=== PATIENT | female | born 1980 | race Caucasian/White ===

== ENCOUNTER 2024-06-26 12:22 | Outpatient (CLI) | payer OTHER, SELFPAY ==
[2024-06-26 13:17] LABS: Alanine Aminotransferase 17 U/L (6-35); Albumin Level 3.8 g/dL (3.5-5.1); Alkaline Phosphatase 48 U/L (38-126); Anion Gap 4 mmol/L (4-12); Aspartate Amino Transferase 18 U/L (14-36); Bilirubin,Total 0.3 mg/dL (0.2-1.3); Blood Urea Nitrogen 23 mg/dL (7-17); Calcium 8.9 mg/dL (8.4-10.2); Carbon Dioxide 27 mmol/L (22-30); Chloride 106 mmol/L (98-107); Cholesterol 184 mg/dL (0-200); Estimated Glomerular Filt Rate > 60; Glucose 96 mg/dL (65-110); HDL Direct 79 mg/dL; Potassium 4.3 mmol/L (3.4-5.0); Sodium 137 mmol/L (137-145); Triglycerides 58 mg/dL (<150)
[2024-06-26 13:31] LABS: LDL Cholesterol Direct 93 mg/dL
[2024-06-26 15:34] LABS: Free T4 Free Thyroxine Reflex 1.02 ng/dL (0.78-2.19)
[2024-06-26 16:31] LABS: Total Triiodothyronine (T3) 1.37 NG/ML (0.97-1.69)
== END 2024-06-26 12:23 | disposition home or self-care (01) ==
DX: Z00.00 Encounter for general adult medical examination without abnormal findings (principal)
CPT/HCPCS: 36415; 80053; 80061; 84439; 84443; 84480

== ENCOUNTER 2024-07-31 06:50 | Outpatient (CLI) | payer OTHER, SELFPAY ==
[2024-07-31 07:29] LABS: Basophils Absolute Auto 0.1 K/mm3 (0.0-0.1); Basophils Percent Auto 0.9 % (0.2-1.2); Eosinophils Absolute Auto 0.2 K/mm3 (0-0.3); Eosinophils Percent Auto 2.7 % (0-4.4); Hematocrit 41.8 % (37.0-47.0); Hemoglobin 13.4 g/dL (12.0-15.0); Immature Granulocyte Absolute 0.02 K/mm3 (0.00-0.031); Immature Granulocyte Percent A 0.3 % (0-0.5); Lymphocytes Absolute Auto 2.65 K/mm3 (0.9-3.2); Lymphocytes Percent Auto 35.6 % (18.3-44.2); Mean Corpuscular HGB Conc 32.1 g/dl (32-36); Mean Corpuscular Hemoglobin 27.5 pg (26-34); Mean Corpuscular Volume 85.8 fl (80-100); Monocytes Absolute Auto 0.5 K/mm3 (0.1-0.6); Monocytes Percent Auto 6.3 % (2.6-8.5); Neutrophils Percent Auto 54.2 % (45.5-73.1); Platelet Count Result 379 k/mm3 (150-375); Red Blood Count 4.87 M/mm3 (4.2-5.4); Red Cell Distribution Width 13.2 % (11.5-14.5); White Blood Count 7.4 K/mm3 (4.5-10.0)
[2024-07-31 07:57] LABS: Iron 38 ug/dL (37-170)
[2024-07-31 08:04] LABS: Percent Iron Saturation 10 % (20-50)
[2024-07-31 08:13] LABS: Free T4 Free Thyroxine 1.06 ng/dL (0.78-2.19)
[2024-07-31 08:44] LABS: Folic Acid 15.1 ng/mL (2.76->20)
== END 2024-07-31 06:51 | disposition home or self-care (01) ==
LOC: ANHLAB 06:53
DX: R53.83 Other fatigue (principal)
CPT/HCPCS: 36415; 82306; 82607; 82746; 83540; 83550; 84439; 84443; 85025

== ENCOUNTER 2024-09-26 03:54 | Outpatient (CLI) | payer OTHER, SELFPAY ==
--- OUTSIDE RECORDS SUMMARY | 2024-09-26 04:00 | XMS_ITS | Encounter Summary ---
Author Organization [facility] Address [address] [place] [address] Care Team Providers Care Compliance Manager Name Role Phone Luda Perrin Primary Care Provider [phone] Encounter Details Date Type Department Care Team (Late st Contact Info) Description 09/09/2024 PetroDE Message [facility] [address] [place] [address] Luda Perrin PA [address] [place] [address] Question Social History Tobacco Use Types Packs/Day Years Used Date Smoking Tobacco: Never Smokeless Tobacco: Never Alcohol Use Standard Drinks/Week Comments Yes 5 (1 standard drink = 0.6 oz pur e alcohol) PHQ-2 Answer Date Recorded Patient Health Questionnaire-2 Score 0 09/26/2023 Comments No Sex and Gender Information Value Date Recorded Sex Assigned at Not on file Legal Sex Female 8:16 PM CDT Gender Identity Not on file Sexual Orientation Not on file documented as of this encounter Plan of Treatment Not on file documented as of this encounter Visit Diagnoses Not on filedocumented in this encounter Additional Health Concerns Assessment Noted Time PHQ-9 Depression Total Score: 0 02/09/20 21 11:48 AM CDT documented as of this encounter Care Teams Compliance Manager Relationship Specialty Start Date End Date Luda Perrin PA PCP - General PHYSICIAN LIVESTOCK BUYER 10/13/18 documented as of this encounter
--- OUTSIDE RECORDS SUMMARY | 2024-09-26 04:00 | XMS_ITS | Patient Health Summary ---
Author Organization [facility] [employer] Address [address] [place] [address] Care Team Providers Care Manager Of Sales Name Role Phone Unavailable Primary Care Provider Unavailabl e Note from [facility],non-owned Affiliates and Associated Physician Practices is amultiple site organization consisting of ambulatory clinics and hospital sitesin [place], [place], [place] and [place]. This disclosure is being madepursuant to the Care Everywhere program and may not contain all information available regarding this patient. Last updated 18.[facility] [employer] Social History Tobacco Use Types Packs/Day Years Used Date Smoking Tobacco: Never Assessed Sex and Gender Information Value Date Recorded Sex Assigned at Female 04/16/2022 11:44 AM CDT Gender Identity Female 04/16/2022 11:44 AM CDT Sexual Orientation Not on file Procedures * T4 FREE DIRECT REFLEXED(Performed 03/11/2019) Performed for Hypothyroidism, unspecified type * TSH REFLEX FREE T4(Performed 03/11/2019) Performed for Hypothyroidism, unspecified type * T4 FREE DIRECT REFLEXED(Performed 12/23/2018) Performed for Hypothyroidism, unspecified type * TSH REFLEX FREE T4(Performed 12/23/2018) Performed for Hypothyroidism, unspecified type * T4 FREE DIRECT REFLEXED(Performed 11/05/2018) Performed for Hypothyroidism, unspecified type * TSH REFLEX FREE T4(Performed 11/05/2018) Performed for Hypothyroidism, unspecified type * VARICELLA ZOSTER ANTIBODY IGG(Performed 06/29/2014) * RUBEOLA ANTIBODY IGG(Performed 06/29/2014) * MUMPS ANTIBODY IGG(Performed 06/29/2014) * HEPATITIS B SURFACE ANTIBODY(Performed 06/29/2014) Results * T4 FREE DIRECT REFLEXED (03/11/2019 7:38 AM CDT) Only the most recent of3 resultswithin the time period is included. Pathologist [facility] T4 Free 1.11 0.65 - 1.34 ng/dL 03/11/2019 1:48 PM CDT [facility] Blood BLOOD SPECIMEN / Unknown Lab Venipuncture / Unknown 03/11/2019 7:38 AM CDT 03/11/2019 7:44 AM CDT Luda MAK LAB - CHEMISTRY TRISTON DOWTRACY Performing Organization Address City/[facility] Co de Phone Number [facility] [address] [place], [place] [phone] * (ABNORMAL) TSH REFLEX FREE T4 (03/11/2019 7:38 AM CDT) Only the most recent of3 resultswithin the time period is included. Pathologist [facility] TSH 0.2301(L) 0.35 - 4.94 ulU/mL 03/11/2019 12:37 PM CDT [facility] Blood BLOOD SPECIMEN / Unknown Lab Venipuncture / Unknown 03/11/2019 7:38 AM CDT 03/11/2019 7:44 AM CDT Luda MAK LAB - CHEMISTRY MELVINChelly MARIZA Performing Organization Address [facility] Co de Phone Number [facility] [address] [place] [phone] * RUBEOLA ANTIBODY IGG (06/29/2014 1:25 PM SYSTEMS DESIGN ENGINEER) Pathologist [facility] Measles (Rubeola) Antibody IgG 282.0 AU/mL 07/01/2014 12:22 PM SYSTEMS DESIGN ENGINEER [facility] ([facility]) Comment: INTERPRETIVE INFORMATION: Measles (Rubeola) Antibody, IgG 24.9 AU/mL or less........ Negative - No significant level of detectable measles (rubeola) IgG antibody. 25.0-29.9 AU/mL .......... Equivocal - Repeat testing in 10-14 days may be helpful. 30.0 AU/mL or greater .... Positive - IgG antibody to measles (rubeola) detected which may indicate a current or past exposure/immunization to measles (rubeola). The best evidence for current infection is a significant change on two appropriately timed specimens, where both tests are done in the same laboratory at the same time. Blood specimen (specimen) BLOOD SPECIMEN / Unknown Venipuncture / Unknown 06/29/2014 1:25 PM SYSTEMS DESIGN ENGINEER 06/29/2014 5:57 PM SYSTEMS DESIGN ENGINEER Provider Unknown LAB - CHEMISTRY TRISTON DAWKINS Performing Organization Address [facility] de Phone Number [employer] [facility]) [address] * MUMPS ANTIBODY IGG (06/29/2014 1:25 PM SYSTEMS DESIGN ENGINEER) Mumps Virus Antibody IgG 14.0 AU/mL 07/01/2014 12:25 PM SYSTEMS DESIGN ENGINEER [employer] ([facility]) Comment: INTERPRETIVE INFORMATION: Mumps Ab, IgG by JOSEPH 8.9 AU/mL or less .... Negative - No significant level of detectable IgG mumps virus antibody 9.0-10.9 AU/mL ....... Equivocal - Repeat testing in 10-14 days may be helpful 11.0 AU/mL or greater: Positive - IgG antibody to mumps virus detected, which may indicate a current or past exposure/ immunization to mumps virus. The best evidence for current infection is a significant change on two appropriately timed specimens, where both tests are done in the same laboratory at the same time. Blood specimen (specimen) BLOOD SPECIMEN / Unknown Venipuncture / Unknown 06/29/2014 1:25 PM SYSTEMS DESIGN ENGINEER 06/29/2014 5:57 PM SYSTEMS DESIGN ENGINEER Provider Unknown LAB - CHEMISTRY TRISTON DAWKINS Performing Organization Address [facility] de Phone Number [employer] [facility]) [address] * VARICELLA ZOSTER ANTIBODY IGG (06/29/2014 1:25 PM SYSTEMS DESIGN ENGINEER) Varicella zoster Virus Antibody IgG 345.9 IV 07/01/2014 12:30 PM SYSTEMS DESIGN ENGINEER [employer] ([facility]) Comment: INTERPRETIVE INFORMATION: VZV Ab, IgG 134 IV or less ....... Negative - No significant level of detectable IgG varicella- zoster antibody. 135 -165 IV .......... Equivocal - Repeat testing in 10-14 days may be helpful. 166 IV or greater .... Positive - IgG antibody to varicella-zoster detected, which may indicate a current or past varicella-zoster infection. The best evidence for current infection is a significant change on two appropriately timed specimens, where both tests are done in the same laboratory at the same time. Blood specimen (specimen) BLOOD SPECIMEN / Unknown Venipuncture / Unknown 06/29/2014 1:25 PM SYSTEMS DESIGN ENGINEER 06/29/2014 5:57 PM SYSTEMS DESIGN ENGINEER Provider Unknown LAB - CHEMISTRY [facility] DAWKINS [facility] ([facility]) [address] * HEPATITIS B SURFACE ANTIBODY (06/29/2014 1:25 PM SYSTEMS DESIGN ENGINEER) [facility] HBsAb Non Reactive Non Reactive 06/29/2014 7:41 PM SYSTEMS DESIGN ENGINEER [facility] Blood BLOOD SPECIMEN / Unknown Venipuncture / Unknown 06/29/2014 1:25 PM SYSTEMS DESIGN ENGINEER 06/29/2014 5:57 PM SYSTEMS DESIGN ENGINEER Provider Unknown LAB - CHEMISTRY TRISTON DOW[employer] [facility] [address] [place] [address]
--- OUTSIDE RECORDS SUMMARY | 2024-09-26 04:00 | XMS_ITS | Referral Summary ---
Author Organization [facility] Address [address] [place] [address] Care Team Providers Care Online Affiliate Marketing Manager Name Role Phone Unavailable Primary Care Provider Unavailabl e Source Comments [facility],non-owned Affiliates and Associated Physician Practices is amultiple site organization consisting of ambulatory clinics and hospital sitesin [place], [place], [place] and [place]. This disclosure is being madepursuant to the Care Everywhere program and may not contain all information available regarding this patient. Last updated 18.[facility] [employer] Social History Tobacco Use Types Packs/Day Years Used Date Smoking Tobacco: Never Assessed Sex and Gender Information Value Date Recorded Sex Assigned at Female 04/16/2022 11:44 AM CDT Gender Identity Female 04/16/2022 11:44 AM CDT Sexual Orientation Not on file Plan of Treatment Not on file
--- OUTSIDE RECORDS SUMMARY | 2024-09-26 04:00 | XMS_ITS | Clinical Summary ---
Author Organization [facility] Address [address] [place] [address] Care Team Providers Care Associate Media Director Name Role Phone Luda Perrin Primary Care Provider [phone] Allergies No known active allergies Medications Cholecalciferol (VITAMIN D-3) 125 MCG (5000 UT) TabIndications:Vi tamin D deficiency Take 1 tablet (5,000 Units total) by mouth daily. 100 tablet 1 2 Active norgestimate-ethi nyl estradiol (SPRINTEC 28) 0.25-35 MG-MCG tabletIndications :Oral contraceptive use Take 1 tablet by mouth daily. 84 tablet 3 3 Active albuterol sulfate HFA 108 (90 Base) MCG/ACT inhalerIndication s:Reactive airways dysfunction syndrome (CMS/HCC HHS/HCC) Inhale 1-2 puffs into the lungs 4 (four) times daily as needed. 18 g 1 4 Active triamcinolone (KENALOG) 0.1 % creamIndications: Eczema, unspecified type APPLY CREAM EXTERNALLY TWICE DAILY 80 g 4 Active levothyroxine (SYNTHROID) 137 MCG tabletIndications :Hypothyroidism, unspecified type Take 1 tablet (137 mcg total) by mouth every morning. 90 tablet 4 Active acyclovir (ZOVIRAX) 400 MG tabletIndications :Cold sore Take 1 tablet (400 mg total) by mouth 3 (three) times daily for 7 days. 21 tablet 5 025 Active Problems Problem Noted Date Diagnosed Date Nasal congestion 09/26/2023 Eczema 12/29/2013 Overview (07/15/2018): eczema Hypothyroidism 12/29/2013 Overview (07/15/2018): may 2013 Obesity, morbid ([facility]) 12/29/2013 Overview (07/15/2018): bmi 39 Encounter for gynecological examination without abnormal finding 12/29/2013 Overview (07/15/2018): utd Encounters Date Type Department Care Team Description 09/09/2024 Orders Only [address] [place] [address] Luda Perrin PA 09/09/2024 MyChart Message Enc [address] [place] [address] Luda Perrin PA Question 08/04/2024 Orders Only [address] [place] [address] Luda Perrin PA 08/04/2024 Orders Only [address] [place] [address] Luda Perrin PA 08/01/2024 MyChart Message Enc [address] [place] [address] Luda Perrin PA Labs 07/15/2024 Orders Only [address] [place] [address] Luda Perrin PA 06/29/2024 MyChart Message Enc [address] [place] [address] Luda Perrin PA Labs 06/26/2024 Scan [facility] INFO SRVCS Scanned, [facility] (SCAN) from Last 3 Months Immunizations Name Administration Dates Next Due Influenza Adult (Generic) 06/27/2023,06/05/2013, 1980 MODERNA COVID-19 (12+) MRNA, LNP-S, PF, 100 MCG/ 0.5 ML DOSE 10/04/2020,09/06/2020 Tdap (Adacel) 02/11/2023 Tdap (Generic) 1980 Family History Medical History Relation Comments Cancer Father lung/liver/colon Breast Cancer Maternal Aunt Cancer Maternal Aunt breast Diabetes Maternal Grandfather Hypertension Maternal Grandfather Cancer Maternal Grandmother mouth [place] Maternal Grandmother COPD Paternal Grandfather Emphysema Paternal Grandfather Relation Status Comments Father Maternal Aunt Maternal Grandfather Maternal Grandmother Paternal Grandfather Social History Tobacco Use Types Packs/Day Years Used Date Smoking Tobacco: Never Smokeless Tobacco: Never Tobacco Cessation:Counseling Given: No Alcohol Use Standard Drinks/Week Comments Yes 5 (1 standard drink = 0.6 oz pur e alcohol) PHQ-2 Answer Date Recorded Patient Health Questionnaire-2 Score 0 09/26/2023 Comments No Sex and Gender Information Value Date Recorded Sex Assigned at Not on file Legal Sex Female 8:16 PM CDT Gender Identity Not on file Sexual Orientation Not on file Last Filed Vital Signs Vital Sign Reading Time Taken Comments Blood Pressure 136/87 04/23/2024 2:43 PM CDT Pulse 74 04/23/2024 2:43 PM CDT Temperature 36.4 C (97.6 F) 04/23/2024 2:43 PM CDT Respiratory Rate 18 04/23/2024 2:43 PM CDT Oxygen Saturation 99% 04/23/2024 2:43 PM CDT Inhaled Oxygen Concentration - - Weight 136.2 kg (300 lb 3.2 oz) 04/23/2024 2:43 PM CDT Height 174 cm (5' 8.5 ) 04/23/2024 2:43 PM CDT Body Mass Index 44.98 04/23/2024 2:43 PM CDT Plan of Treatment Health Maintenance Due Date Last Done Comments Hepatitis C 1997 Hepatitis B Vaccines (1 of 3 - 19+ 3-dose series) 1998 COVID-19 Vaccine ( season) 2024 10/04/2020, 09/06/2020 Influenza Adult (#1) 2024 06/27/2023, 06/05/2013, 1980 PHQ-2 (Physician [place]) 08/05/2024 09/26/2023 Cervical Cancer Screening Pap Smear (Age 30 to 64) Every 3 Years 12/14/2024 12/14/2021 Colorectal Cancer Screening Colonoscopy (10 Years) 04/01/2025 04/01/2020 Annual Physical 04/23/2025 04/23/2024, 02/02, 12/14/2021, Additional history exists Mammogram Screening 08/27/2025 08/27/2023, 02/26/2022, 02/21/2021, Additional history exists Cervical Cancer Screening Pap with HPV Testing (Age 30 to 64) Every 5 Years 12/14/2026 12/14/2021, 08/15/2017, 08/15/2017, Additional history exists Cervical Cancer Screening with HPV 12/14/2026 DTaP, Tdap and Td Vaccines (2 - Td or Tdap) 02/11/2033 02/11/2023, 1980 HPV Vaccines Aged Out No longer eligi ble based on patient's age to complete this topic Meningococcal B Vaccine Aged Out No l onger eligible based on patient's age to complete this topic Meningococcal Vaccine Aged Out No satnam eran eligible based on patient's age to complete this topic Pneumococcal Vaccine: Pediatrics (0 to 5 Years) and At-Risk Patients (6 to 64 Years) Aged Out No longer eligible based on patient's age to complete this topic RSV Immunizations Under 20 Months Aged Out No longer eligible based on patient's age to complete this topic Procedures Procedure Name Priority Date/Time Associated Diagnosis Comments OUTSIDE LAB (SCAN ORDER) 06/26/2024 OUTSIDE LAB (SCAN ORDER) 06/26/2024 MG SCREENING W DARBY JUSTUS DIGI Routine 08/27/2023 4:16 PM DIRECTOR OF VENDOR MANAGEMENT Encounter for screening mammogram for malignant neoplasm of breast HPV MRNA E6/E7 Routine 12/14/2021 1:02 PM CDT CYTOPATH CERV/VAG THIN LAYER Routine 12/14/2021 12:00 AM CDT Well female exam with routine gynecological exam from Last 3 Months or Most Recently Relevant to Health Maintenance Results * OUTSIDE LAB (SCAN ORDER) (06/26/2024) Only the most recent of2 resultswithin the time period is included. 06/26/2024 [facility] Scanned SCANNING Final Resu lt * MG SCREENING W DARBY JUSTUS DIGI (08/27/2023 4:16 PM DIRECTOR OF VENDOR MANAGEMENT) Anatomical Region Laterality Modality Breast Bilateral Mammography 08/28/2023 9:12 AM DIRECTOR OF VENDOR MANAGEMENT Narrative 08/28/2023 9:13 AM DIRECTOR OF VENDOR MANAGEMENT Examination: Digital screening mammogram with CAD. Clinical history: Asymptomatic patient presents for routine screening. Comparison: 02/26/2022, 02/21/2021, 01/22/2020. Technique: Bilateral digital mammograms. The exam was interpreted with the use of a computer-aided detection (CAD) system. Additional 3-D tomosynthesis images were acquired. Tissue density: The breast tissue contains scattered fibroglandular densities. Findings: The breast tissue contains scattered fibroglandular densities. No suspicious mass, microcalcification or area of architectural distortion can be identified. From a mammographic standpoint, routine followup in one year would seem adequate. IMPRESSION: No suspicious change since the previous exams. Recommendation: 1: Routine Screening Bilateral in 1 Year Assessment: ACR BI-RADS 1 - NEGATIVE Ordered By: SANGITA VALENZUELA Interpreted By: Evelio Nieves MD, 08/28/2023 9:12 AM Sangita Valenzuela CNM MAMMO Final Result * HPV MRNA E6/E7 (12/14/2021 1:02 PM CDT) HPV MRNA E6/E7 Not Detected NOT DETECTED 12/18/2021 1:47 PM CDT [facility] MECHELLE RAM Comment: Methodology: Corporate Real Estate Specialist Mediated Amplification This assay detects E6/E7 viral messenger RNA (mRNA) from 14 high-risk HPV types (16,18,31,33,35,39,45,51, 52,56,58,59,66,68). For additional information please refer to: http://education.[employer]faq/JQB458o8 (This link is being provided for informational/ educational purposes only.) The analytical performance characteristics of this assay have been determined by [facility] [place], [place]. The modifications have not been cleared or approved by the FDA. This assay has been validated pursuant to the CLIA regulations and is used for clinical purposes. Test Performed by [facility], [facility], [address] [place], [place] Cuate Echeverria M.D., Ph.D., Director of Laboratories , CLIA [id number] 12/14/2021 1:02 PM CDT Luda MAK PATHOLOGY/CYTOLOGY ORDERABLES Fi nal Result [facility] [address] , * CYTOPATH CERV/VAG THIN LAYER [[id number]] (12/14/2021 12:00 AM CDT) COPATH REPORT [place] [phone] Department of Pathology Pathology Report Gynecological Cytology Report Patient Name: TRESSA BAÑUELOS : 1980 (Age: 41) Location: [facility] Gender: F Collected Date: 12/14/2021 Med Rec #: [id number] Date Received: 12/15/2021 Date Reported: 12/20/2021 Provider: LUDA MAK Final Cytologic Diagnosis Satisfactory for evaluation. Endocervical component not identified. Negative for Intraepithelial Lesion or Malignancy. High-risk HPV mRNA E6/E7 by Aptima assay (performed at [facility]) is reported as NOT DETECTED (see separate report for details). Electronically Signed Out By Patrick Ross Source of Specimen(s) Cervical/Endocervi marge - Thin Prep Clinical History Screening, last Pap not provided. Z01.419 Date of Last Menstrual Period: 11/29/2021 Billing Fee Code(s): A: [address] [facility] 12/14/2021 12/15/2021 7:0 7 AM CDT Comment:Cervical/Endocervica l - Thin Prep Luda MAK PATHOLOGY/CYTOLOGY ORDERABLES Fi nal Result [facility] [address] [place] [address], from Last 3 Months or Most Recently Relevant to Health Maintenance Insurance R Care Teams Associate Media Director Relationship Specialty Start Date End Date Luda Perrin PA PCP - General PHYSICIAN HAMMER DRIVER 10/13/18
--- OUTSIDE RECORDS SUMMARY | 2024-09-26 04:00 | XMS_ITS | Encounter Summary ---
Author Organization [facility] Address [address] [place] [id number] Care Team Providers Care Toy Painter Name Role Phone Luda Perrin Primary Care Provider [phone] Encounter Details Date Type Department Care Team (Late st Contact Info) Description 02/25/2003 Abstract [facility] Conversion Md, Generic Conversion, Social History Tobacco Use Types Packs/Day Years Used Date Smoking Tobacco: Never Assessed Comments Unknown Sex and Gender Information Value Date Recorded Sex Assigned at Not on file Legal Sex Female 8:16 PM CDT Gender Identity Not on file Sexual Orientation Not on file documented as of this encounter Plan of Treatment Not on file documented as of this encounter Visit Diagnoses Not on filedocumented in this encounter Additional Health Concerns Infection Onset Date Last Indicated Resolved Time COVID-19 Rule Out 03/29/2020 03/29/2020 03/30/2020 5:37 PM CDT COVID-19 Rule Out 09/26/2023 09/26/2023 09/26/2023 3:40 PM TEST DRILLER Influenza - Seasonal 09/26/2023 09/26/2023 024 12:32 AM TEST DRILLER documented as of this encounter Care Teams Toy Painter Relationship Specialty Start Date End Date Luda Perrin PA PCP - General PHYSICIAN DESIGN ENGINEERING TECHNICIAN 10/13/18 documented as of this encounter
--- OUTSIDE RECORDS SUMMARY | 2024-09-26 04:00 | XMS_ITS | Encounter Summary ---
Author Organization [facility] Address [address] [place] [address] Care Team Providers Care Link Wire Fabric Machine Operator Name Role Phone Unavailable Primary Care Provider Unavailabl e Encounter Details Date Type Department Care Team (Late st Contact Info) Description 06/29/2014 Lab Requisition [facility] [address] [place] [id number] Unknown, Provider Social History Tobacco Use Types Packs/Day Years Used Date Smoking Tobacco: Never Assessed Sex and Gender Information Value Date Recorded Sex Assigned at Female 04/16/2022 11:44 AM CDT Gender Identity Female 04/16/2022 11:44 AM CDT Sexual Orientation Not on file documented as of this encounter Plan of Treatment Not on file documented as of this encounter Procedures Procedure Name Priority Date/Time Associated Diagnosis Comments RUBEOLA ANTIBODY IGG Routine 06/29/2014 1:25 PM SOFTWARE SUPPORT TECHNICIAN MUMPS ANTIBODY IGG Routine 06/29/2014 1: 25 PM SOFTWARE SUPPORT TECHNICIAN VARICELLA ZOSTER ANTIBODY IGG Routine 06/29/2014 1:25 PM SOFTWARE SUPPORT TECHNICIAN HEPATITIS B SURFACE ANTIBODY Routine 06/29/2014 1:25 PM SOFTWARE SUPPORT TECHNICIAN documented in this encounter Results * VARICELLA ZOSTER ANTIBODY IGG (06/29/2014 1:25 PM SOFTWARE SUPPORT TECHNICIAN) Varicella zoster Virus Antibody IgG 345.9 IV 07/01/2014 12:30 PM SOFTWARE SUPPORT TECHNICIAN [facility] ([facility]) Comment: INTERPRETIVE INFORMATION: VZV Ab, IgG 134 [...] Unknown Venipuncture / Unknown 06/29/2014 1:25 PM SOFTWARE SUPPORT TECHNICIAN 06/29/2014 5:57 PM SOFTWARE SUPPORT TECHNICIAN Provider Unknown LAB - CHEMISTRY TRISTON DAWKINS Performing Organization Address [facility] de Phone Number [facility]) [address] * RUBEOLA ANTIBODY IGG (06/29/2014 1:25 PM SOFTWARE SUPPORT TECHNICIAN) [facility] Measles (Rubeola) Antibody IgG 282.0 AU/mL 07/01/2014 12:22 PM SOFTWARE SUPPORT TECHNICIAN [facility] ([facility]) Comment: INTERPRETIVE INFORMATION: Measles (Rubeola) Antibody, IgG [...] Unknown Venipuncture / Unknown 06/29/2014 1:25 PM SOFTWARE SUPPORT TECHNICIAN 06/29/2014 5:57 PM SOFTWARE SUPPORT TECHNICIAN Provider Unknown LAB - CHEMISTRY TRISTON DAWKINS Performing Organization Address [facility] Co de Phone Number [facility]) [address] * MUMPS ANTIBODY IGG (06/29/2014 1:25 PM SOFTWARE SUPPORT TECHNICIAN) Pathologist [facility] Mumps Virus Antibody IgG 14.0 AU/mL 07/01/2014 12:25 PM SOFTWARE SUPPORT TECHNICIAN [facility] ([facility]) Comment: INTERPRETIVE INFORMATION: Mumps Ab, IgG by [...] Unknown Venipuncture / Unknown 06/29/2014 1:25 PM SOFTWARE SUPPORT TECHNICIAN 06/29/2014 5:57 PM SOFTWARE SUPPORT TECHNICIAN Provider Unknown LAB - CHEMISTRY TRISTON DAWKINS [facility] ([facility]) [address] * HEPATITIS B SURFACE ANTIBODY (06/29/2014 1:25 PM SOFTWARE SUPPORT TECHNICIAN) Pathologist [facility] HBsAb Non Reactive Non Reactive 06/29/2014 7:41 PM SOFTWARE SUPPORT TECHNICIAN [facility] Blood BLOOD SPECIMEN / Unknown Venipuncture / Unknown 06/29/2014 1:25 PM SOFTWARE SUPPORT TECHNICIAN 06/29/2014 5:57 PM SOFTWARE SUPPORT TECHNICIAN Provider Unknown LAB - CHEMISTRY [facility] [address] [place], [place] [id number] documented in this encounter Visit Diagnoses Not on filedocumented in this encounter
--- OUTSIDE RECORDS SUMMARY | 2024-09-26 04:00 | XMS_ITS | Encounter Summary ---
Author Organization [facility] Address [address] [place] [address] Care Team Providers Care Ecd Name Role Phone Luda Perrin Primary Care Provider [phone] Encounter Details Date Type Department Care Team (Late st Contact Info) Description 02/04/2024 Tablefinder Message [facility] [address] [place] [address] Luda Perrin PA [address] [place] [address] Question Social History Tobacco Use Types Packs/Day [...] on file documented as of this encounter Progress Notes * AUBREE Elliott - 02/04/2024 5:11 PM CDT I can't just prescribe it - I need her to come in for a visit so we can discuss it. Also, I would recommend that she check with her insurance company to make sure that it is covered for weight loss because it is often hard to get insurance to approve it and it is very expensive. documented in this encounter Plan of Treatment Not on file documented as of this encounter Visit Diagnoses Not on filedocumented in this encounter Additional Health Concerns Assessment Noted Time PHQ-9 Depression Total Score: 0 02/09/20 21 11:48 AM CDT documented as of this encounter Care Teams Ecd Relationship Specialty Start Date End Date Luda Perrin PA PCP - General PHYSICIAN CONTRACT ADMINISTRATION COORDINATOR 10/13/18 documented as of this encounter
--- OUTSIDE RECORDS SUMMARY | 2024-09-26 04:00 | XMS_ITS | Encounter Summary ---
Author Organization [facility] Address [address] [place] [address] Care Team Providers Care Life Enrichment Specialist Name Role Phone Luda Perrin Primary Care Provider [phone] Encounter Details Date Type Department Care Team (Late st Contact Info) Description 09/26/2023 [email or web address] Message [facility] [address] [place] [address] Luda Perrin PA [address] [place] [address] Appointment Social History Tobacco Use Types Packs/Day Years [...] as of this encounter Progress Notes * Bessie Mora RN - 09/26/2023 12:01 PM CST Patient contacted via telephone; scheduled for acute visit with PCP. BESSIE MORA RN 09/26/2023 ORGANIZER documented in this encounter Plan of Treatment Not on file documented as of this encounter Visit Diagnoses Not on filedocumented in this encounter Additional Health Concerns Infection Onset Date Last Indicated Resolved Time COVID-19 Rule Out 09/26/2023 09/26/2023 09/26/2023 3:40 PM HOME ORGANIZER Influenza - Seasonal 09/26/2023 09/26/2023 024 12:32 AM HOME ORGANIZER Assessment Noted Time PHQ-9 Depression Total Score: 0 02/09/20 21 11:48 AM CDT documented as of this encounter Care Teams Life Enrichment Specialist Relationship Specialty Start Date End Date Luda Perrin PA PCP - General PHYSICIAN PHYSICS TEACHER 10/13/18 documented as of this encounter
--- OUTSIDE RECORDS SUMMARY | 2024-09-26 04:00 | XMS_ITS | Encounter Summary ---
Author Organization [facility] Address [address] [place] [address] Care Team Providers Care Arcade Technician Name Role Phone Luda Perrin Primary Care Provider [phone] Encounter Details Date Type Department Care Team (Late st Contact Info) Description 08/01/2024 XMOS Message [facility] [address] [place] [address] Luda Perrin PA [address] [place] [address] Labs Social History Tobacco Use Types Packs/Day Years [...] documented as of this encounter Care Teams Arcade Technician Relationship Specialty Start Date End Date Luda Perrin PA PCP - General PHYSICIAN HEEL SEAT FLAP STAPLER 10/13/18 documented as of this encounter
--- OUTSIDE RECORDS SUMMARY | 2024-09-26 04:00 | XMS_ITS | Encounter Summary ---
Author Organization [facility] Address [address] [place] [address] Care Team Providers Care Vest Front Presser Name Role Phone Luda Perrin Primary Care Provider [phone] Encounter Details Date Type Department Care Team (Late st Contact Info) Description 03/25/2020 Prep for Procedure [address] [address] Jaiden Stout MD Social History Tobacco Use Types Packs/Day Years Used Date Smoking Tobacco: Never Smokeless Tobacco: Never Alcohol Use Standard Drinks/Week Comments Yes 5 (1 standard drink = 0.6 oz pur e alcohol) Comments No Sex and Gender Information Value Date Recorded Sex Assigned at Not on file Legal Sex Female 8:16 PM CDT Gender Identity Not on file Sexual Orientation Not on file COVID-19 Exposure Response Date Recorded In the last month, have you been in contact with someone who was confirmed or suspected to have Coronavirus / COVID-19? Yes 03/25/2020 3:35 PM CDT documented as of this encounter Plan of Treatment Not on file documented as of this encounter Results * PRE-SURGICAL/PRE-PROCEDURE CORONAVIRUS (COVID 19) (03/29/2020 8:14 AM CDT) CORONAVIRUS SARS COV 2 PCR (RESP) NOT DETECTED NOT DETECTED 03/30/2020 5:36 PM CDT [facility] Comment: A Not Detected (negative) test result for this test means that SARS- CoV-2 RNA was not present in the specimen above the limit of detection. A negative result does not rule out the possibility of COVID-19 and should not be used as the sole basis for treatment or patient management decisions. If COVID-19 is still suspected, based on exposure history together with other clinical findings, re-testing should be considered in consultation with public health authorities. Laboratory test results should always be considered in the context of clinical observations and epidemiological data in making a final diagnosis and patient management decisions. Please review the Fact Sheets and FDA authorized labeling available for health care providers and patients using the following websites: https://www.[employer].Trendzo/home/Covid-19/HCP/NAAT/fact-sheet2 https://www.[employer].Trendzo/home/Covid-19/Patients/NAAT/ fact-sheet2 This test has been authorized by the FDA under an Emergency Use Authorization (EUA) for use by authorized laboratories. Due to the current public health emergency, [facility] is receiving a high volume of samples from a wide variety of swabs and media for COVID-19 testing. In order to serve patients during this public health crisis, samples from appropriate clinical sources are being tested. Negative test results derived from specimens received in non-commercially manufactured viral collection and transport media, or in media and sample collection kits not yet authorized by FDA for COVID-19 testing should be cautiously evaluated and the patient potentially subjected to extra precautions such as additional clinical monitoring, including collection of an additional specimen. Methodology: Nucleic Acid Amplification Test (NAAT) includes PCR or TMA Additional information about COVID-19 can be found at the [facility] website: www.[employer].Trendzo/Covid19. Test performed at [facility] [place] [address] [place] [address] Director: FRANCISCA MENEZES DO,MPH NASOPHARYNGEAL SWAB / Unknown 03/29/2020 8:14 AM CDT us Jaiden Stout MD MICROBIOLOGY - GENERAL ORDERJair ANDERSON Final Result [facility] [id number] [place] [id number] [place] [address] documented in this encounter Visit Diagnoses Diagnosis Pre-op testing- Primary Preoperative examination, unspecified documented in this encounter Additional Health Concerns Infection Onset Date Last Indicated Resolved Time COVID-19 Rule Out 03/29/2020 03/29/2020 03/30/2020 5:37 PM CDT COVID-19 Rule Out 09/26/2023 09/26/2023 09/26/2023 3:40 PM BLOCK BREAKER Influenza - Seasonal 09/26/2023 09/26/2023 024 12:32 AM BLOCK BREAKER documented as of this encounter Care Teams Vest Front Presser Relationship Specialty Start Date End Date Luda Perrin PA PCP - General PHYSICIAN NEWBORN PHOTOGRAPHER 10/13/18 documented as of this encounter
--- OUTSIDE RECORDS SUMMARY | 2024-09-26 04:00 | XMS_ITS | Clinical Summary ---
Author Organization [facility] Address [address] [place] [address] Care Team Providers Care Hot End Operator Name Role Phone Unavailable Primary Care Provider Unavailabl e Source Comments [facility],non-owned Affiliates and Associated Physician Practices is amultiple site organization consisting of ambulatory clinics and hospital sitesin [place], [place], [place] and [place]. This disclosure is being madepursuant to the Care Everywhere program and may not contain all information available regarding this patient. Last updated 18.[facility] Social History Tobacco Use Types Packs/Day Years Used Date Smoking Tobacco: Never Assessed Sex and Gender Information Value Date Recorded Sex Assigned at Female 04/16/2022 11:44 AM CDT Gender Identity Female 04/16/2022 11:44 AM CDT Sexual Orientation Not on file Plan of Treatment Health Maintenance Due Date Last Done Comments COLOGUARD (AGES 45-75) - COL ON CA SCREENING 1979 COLON MONITORING 1979 COLONOSCOPY - COLON CA SCREENING 1979 CT COLONOGRAPHY - COLON CA SCREENING 1979 Colorectal Cancer Screening 1979 FIT - COLON CA SCREENING 1979 FLEX SIG - COLON CA SCREENING 1979 LIPID TESTING 1979 MAMMOGRAM 1979 PAP SMEAR 1979 HIV SCREENING 1994 HEPATITIS C SCREENING 03/13/1997 DTAP/TDAP/TD VACCINES (1 - Tdap) 1998 HEPATITIS B VACCINE (1 of 3 - 19+ 3-dose series) 1998 COVID-19 VACCINE (2023-2 5 season) 2024 INFLUENZA VACCINE (#1) 2024 3, 1979 DEPRESSION SCREENING 08/05/2024 ZOSTER VACCINE (1 of 2) 2029 HIB VACCINE Aged Out No longer eligi ble based on patient's age to complete this topic HPV VACCINE Aged Out No longer eligi ble based on patient's age to complete this topic MENINGOCOCCAL (Group B) VACCINE Aged Out No longer eligible b ased on patient's age to complete this topic MENINGOCOCCAL VACCINE Aged Out No satnam eran eligible based on patient's age to complete this topic PNEUMOCOCCAL VACCINE Aged Out No long er eligible based on patient's age to complete this topic
== END 2024-09-26 03:55 | disposition home or self-care (01) ==
LOC: ANHOBOP 03:59
PROVIDERS: Physician Assistant
DX: E03.9 Hypothyroidism, unspecified (principal)
CPT/HCPCS: 36415; 84443

== ENCOUNTER 2024-12-11 14:53 | Outpatient (CLI) | payer OTHER, SELFPAY ==
--- NOTE | ~2024-12-11 | MM_ITS ---
EXAMINATION: MM screening griselda BI w emma HISTORY: Screening TECHNIQUE: Craniocaudal and mediolateral oblique 3-D tomosynthesis images were obtained and synthetic 2-D images were generated. CAD analysis was submitted and interpreted. COMPARISON: No prior mammogram is available for comparison at this institution. BREAST PARENCHYMAL COMPOSITION: Not Dense: The breasts are almost entirely fatty. FINDINGS: There is no evidence of suspicious mass, calcification, or architectural distortion to sugg est malignancy in either breast. There has been no suspicious interval change. IMPRESSION: 1. No mammographic evidence of malignancy. 2. Recommend routine screening mammography in one year. BI-RADS Category 1: Negative Reviewed, dictated and finalized at location A.
== END 2024-12-11 14:54 | disposition home or self-care (01) ==
LOC: MICIMG 14:54
PROVIDERS: Visit Provider Nurse Practitioner Women's Health
DX: Z12.31 Encounter for screening mammogram for malignant neoplasm of breast (principal)
CPT/HCPCS: 77063; 77067

== ENCOUNTER 2025-05-26 10:02 | Outpatient (CLI) | payer OTHER, SELFPAY ==
[2025-05-26 10:54] LABS: Hematocrit 42.1 % (37.0-47.0); Hemoglobin 13.4 g/dL (12.0-15.0); Immature Granulocyte Percent A 0.2 % (0-0.5); Lymphocytes Absolute Auto 1.62 K/mm3 (0.9-3.2); Mean Corpuscular HGB Conc 31.8 g/dl (32-36); Mean Corpuscular Hemoglobin 27.2 pg (26-34); Mean Corpuscular Volume 85.6 fl (80-100); Nucleated Red Blood Cells Absolute Auto 0.000 K/mm3 (0.0-0.012); Nucleated Red Blood Cells Perc 0.0 % (0.0-0.2); Platelet Count Result 332 k/mm3 (150-375); Red Blood Count 4.92 M/mm3 (4.2-5.4); White Blood Count 5.9 K/mm3 (4.5-10.0)
[2025-05-26 11:26] LABS: Alanine Aminotransferase 18 U/L (6-35); Albumin Level 3.8 g/dL (3.5-5.1); Alkaline Phosphatase 52 U/L (38-126); Anion Gap 7 mmol/L (4-12); Aspartate Amino Transferase 23 U/L (14-36); Bilirubin,Total 0.3 mg/dL (0.2-1.3); Blood Urea Nitrogen 21 mg/dL (7-17); Calcium 8.8 mg/dL (8.4-10.2); Carbon Dioxide 27 mmol/L (22-30); Chloride 103 mmol/L (98-107); Cholesterol 200 mg/dL (0-200); Estimated Glomerular Filt Rate > 60; Glucose 98 mg/dL (65-110); HDL Direct 72 mg/dL; Potassium 4.2 mmol/L (3.4-5.0); Sodium 137 mmol/L (137-145); Total Protein 7.1 g/dL (6.3-8.2); Triglycerides 56 mg/dL (<150)
[2025-05-26 11:50] LABS: Thyroid Stimulating Hormone Reflex 3.100 uIU/mL (0.465-4.68)
--- OUTSIDE RECORDS SUMMARY | 2025-05-26 11:57 | XMS_ITS | Encounter Summary ---
Author Organization [facility] Address [address] [place] [address] Care Team Providers Care Steel Post Installer Supervisor Name Role Phone Luda Perrin Primary Care Provider [phone] Encounter Details Date Type Department Care Team (Late st Contact Info) Description 02/13/2025 The TechMap Message [facility] [address] [place] [address] Luda Perrin PA [address] [place] [address] Medication RX Social History Tobacco Use Types Packs/Day Years [...] documented as of this encounter Care Teams Steel Post Installer Supervisor Relationship Specialty Start Date End Date Luda Perrin PA PCP - General PHYSICIAN ROPE MAKER 10/13/18 documented as of this encounter
--- OUTSIDE RECORDS SUMMARY | 2025-05-26 11:57 | XMS_ITS | Clinical Summary ---
Author Organization [facility] Address [address] [place] [address] Care Team Providers Care Regional Geodetic Advisor Name Role Phone Unavailable Primary Care Provider Unavailabl e Source Comments [facility],non-owned Affiliates and Associated Physician Practices is amultiple site organization consisting of ambulatory clinics and hospital sitesin [place], [place], [place] and [place]. This disclosure is being madepursuant to the Care Everywhere program and may not contain all information available regarding this patient. Last updated 18.[facility] Social History Tobacco Use Types Packs/Day Years Used Date Smoking Tobacco: Never Assessed Comments Unknown Sex and Gender Information Value Date Recorded Sex Assigned at Female 04/16/2022 11:44 AM CDT Legal Sex Female 5:54 PM CLAIMS COORDINATOR Gender Identity Female 04/16/2022 11:44 AM CDT [...] SCREENING 1979 LIPID TESTING 1979 MAMMOGRAM 1979 HIV SCREENING 1994 HEPATITIS C SCREENING 03/13/1997 DTAP/TDAP/TD VACCINES (1 - Tdap) 1998 HEPATITIS B VACCINE (1 of 3 - 19+ 3-dose series) 1998 DEPRESSION SCREENING 08/05/2024 COVID-19 VACCINE (1 - 4-2 5 season) 2025 INFLUENZA VACCINE (#1) 2025 3, 1979 ZOSTER VACCINE (1 of 2) 2029 HIB VACCINE Aged Out No longer eligi ble based on patient's age to complete this topic HPV VACCINE Aged Out No longer eligi ble based on patient's age to complete this topic MENINGOCOCCAL (Group B) VACCINE SHARED DECISION-MAKING Aged Out No longer eligible based on patient's age to complete this topic MENINGOCOCCAL GROUPS A/C/Y/W VACCINE Aged Out No longer eligible b ased on patient's age to complete this topic PNEUMOCOCCAL VACCINE Aged Out No long er eligible based on patient's age to complete this topic Insurance [facility]
--- OUTSIDE RECORDS SUMMARY | 2025-05-26 11:57 | XMS_ITS | Clinical Summary ---
Author Organization [facility] Address [address] [place] [address] Care Team Providers Care Photographer Model Name Role Phone Luda Perrin Primary Care Provider Allergies No known active allergies Medications Cholecalciferol (VITAMIN D-3) 125 MCG (5000 UT) TabIndications:Vi tamin D deficiency Take 1 tablet (5,000 Units total) by mouth daily. 100 tablet 1 12/19/19 22 Active norgestimate-ethi nyl estradiol (SPRINTEC 28) 0.25-35 MG-MCG tabletIndications :Oral contraceptive use Take 1 tablet by mouth daily. 84 tablet 3 02/12/20 23 Active albuterol sulfate HFA 108 (90 Base) MCG/ACT inhalerIndication s:Reactive airways dysfunction syndrome (CMS/HCC HHS/HCC) Inhale 1-2 puffs into the lungs 4 (four) times daily as needed. 18 g 1 09/26/19 24 Active triamcinolone (KENALOG) 0.1 % creamIndications: Eczema, unspecified type APPLY CREAM EXTERNALLY TWICE DAILY 80 g 05/25/20 24 Active valACYclovir (VALTREX) 1 g tabletIndications :Cold sore Take 2 pills bid x 1 day. 4 tablet 2 04/27/20 25 Active clobetasol (TEMOVATE) 0.05 % ointment APPLY THIN LAYER TOPICALLY TO THE AFFECTED AREA TWICE DAILY Active levothyroxine (SYNTHROID) 137 MCG tabletIndications :Hypothyroidism, unspecified type Take 1 tablet (137 mcg total) by mouth every morning. 90 tablet 3 04/28/20 25 Active valACYclovir (VALTREX) 1 g tabletIndications :Cold sore Take 2 pills bid x 1 day. 4 tablet 2 02/17/20 25 025 Discontin ued(Reord er) levothyroxine (SYNTHROID) 137 MCG tabletIndications :Hypothyroidism, unspecified type TAKE 1 TABLET BY MOUTH ONCE DAILY IN THE MORNING 90 tablet 04/14/20 25 025 Discontin ued(Reord er) Active Problems Problem Noted Date Diagnosed Date Nasal congestion 09/26/2023 Eczema 12/29/2013 Overview (07/15/2018): eczema Hypothyroidism 12/29/2013 Overview (07/15/2018): may 2013 Obesity, morbid 12/29/2013 Overview (07/15/2018): bmi 39 Encounter for gynecological examination without abnormal finding 12/29/2013 Overview (07/15/2018): utd Encounters Date Type Department Care Team Description 05/25/2025 MyChart Message Enc [facility] [address] [place] [address] Luda Perrin PA Colonoscopy referral 04/28/2025 1:00 PM CDT Office Visit [address] [address] Luda Perrin PA Physical (WELLNESS) 04/28/2025 Travel from Last 3 Months Immunizations Immunization Administration Dates Next Due Influenza (Generic) 07/11/2024 Influenza Adult (Generic) 06/27/2023,06/05/2013, 1980 MODERNA COVID-19 (12+) MRNA, LNP-S, PF, 100 MCG/ 0.5 ML DOSE 10/04/2020,09/06/2020 Tdap (Adacel) 02/11/2023 Tdap (Generic) 1980 Family History Medical History Relation Comments Cancer Father lung/liver/colon Breast Cancer Maternal Aunt Cancer Maternal Aunt breast Diabetes Maternal Grandfather Hypertension Maternal Grandfather Cancer Maternal Grandmother mouth VA Maternal Grandmother COPD Paternal Grandfather Emphysema Paternal [...] Date Recorded Patient Health Questionnaire-2 Score 0 04/28/2025 Comments No Sex and Gender Information Value Date Recorded Sex Assigned at Not on file Legal Sex Female 8:16 PM CDT Gender Identity Not on file Sexual Orientation Not on file Last Filed Vital Signs Vital Sign Reading Time Taken Comments Blood Pressure 138/82 04/28/2025 1:04 PM CDT Pulse 75 04/28/2025 1:04 PM CDT Temperature 36.4 C (97.6 F) 04/28/2025 1:04 PM CDT Respiratory Rate 18 04/28/2025 1:04 PM CDT Oxygen Saturation 99% 04/28/2025 1:04 PM CDT Inhaled Oxygen Concentration - - Weight 135.8 kg (299 lb 6.4 oz) 04/28/2025 1:04 PM CDT Height 174 cm (5' 8.5) 04/28/2025 1:04 PM CDT Body Mass Index 44.86 04/28/2025 1:04 PM CDT Plan of Treatment Health Maintenance Due Date Last Done Comments Hepatitis C 1997 Hepatitis B Vaccines (1 of 3 - 19+ 3-dose series) 1998 Cervical Cancer Screening Pap Smear (Age 30 to 64) Every 3 Years 12/14/2024 12/14/2021 Influenza Adult (#1) 2025 07/11/2024, 06/27/2023, 06/05/2013, Additional history exists Annual Physical 04/28/2026 04/28/2025, 04/05, 02/11/2023, Additional history exists COVID-19 Vaccine (2024- season) 2026 10/04/2020, 09/06/2020 Postponed from 04/05/2025 (Patient Refused) Colorectal Cancer Screening Colonoscopy (10 Years) 04/28/2026 04/01/2020 Postponed from 04/01/2025 (Patient Refused) Mammogram Screening 12/11/2026 12/11/2024, 08/27/2023, 02/26/2022, Additional history exists Cervical Cancer Screening Pap with HPV Testing (Age 30 to 64) Every 5 Years 12/14/2026 12/14/2021, 08/15/2017, 08/15/2017, Additional history exists Cervical Cancer Screening with HPV 12/14/2026 DTaP, Tdap and Td Vaccines (2 - Td or Tdap) 02/11/2033 02/11/2023, 1980 PHQ-2 ([facility]) Completed 04/28/2025 Hepatitis A Vaccines Aged Out No long er eligible based on patient's age to complete this topic Meningococcal B Vaccine Aged Out No l onger eligible based on patient's age to complete this topic Meningococcal Vaccine Aged Out No satnam eran eligible based on patient's age to complete this topic Pneumococcal Vaccine: Pediatrics (0 to 5 Years) and At-Risk Patients (6 to 49 Years) Aged Out No longer eligible based on patient's age to complete this topic RSV Immunizations Under 20 Months Aged Out No longer eligible based on patient's age to complete this topic Procedures Procedure Name Priority Date/Time Associated Diagnosis Comments MAMMOGRAM GENERIC (SCAN ORDER) 12/11/2024 HPV MRNA E6/E7 Routine 12/14/2021 1:02 PM CDT CYTOPATH CERV/VAG THIN LAYER Routine 12/14/2021 12:00 AM CDT Well female exam with routine gynecological exam from Last 3 Months or Most Recently Relevant to Health Maintenance Results * MAMMOGRAM GENERIC (SCAN ORDER) (12/11/2024) Anatomical Region Laterality Modality Other 12/11/2024 us Doc Med Group Scanned SCANNING Final Resu lt * HPV MRNA E6/E7 (12/14/2021 1:02 PM CDT) HPV MRNA E6/E7 Not Detected NOT DETECTED 12/18/2021 1:47 PM CDT [facility]ECHELLE RAM Comment: Methodology: Ladle Puller Mediated Amplification This assay detects E6/E7 viral messenger RNA (mRNA) from 14 high-risk HPV types (16,18,31,33,35,39,45,51, 52,56,58,59,66,68). For additional information please refer to: http://Micrima.Greysox/faq/TAY157b4 (This link is being provided for informational/ educational purposes only.) The analytical performance characteristics of this assay have been determined by [facility], [place]. The modifications have not been cleared or approved by the FDA. This assay has been validated pursuant to the CLIA regulations and is used for clinical purposes. Test Performed by [facility], [email or web address] [facility], [address] [place], [place] Cuate Echeverria M.D., Ph.D., Director of Laboratories , CLIA [id number] 12/14/2021 1:02 PM CDT us Luda MAK PATHOLOGY/CYTOLOGY ORDERABLES Fi nal Result [facility] [place] [id number] [place] [address], * CYTOPATH CERV/VAG THIN LAYER [32414] (12/14/2021 12:00 AM CDT) COPATH REPORT [place] [address] [phone] Department of Pathology Pathology Report Gynecological Cytology Report Patient Name: TRESSA BAÑUELOS : 1980 (Age: 41) Location: [facility] Gender: F Collected Date: 12/14/2021 Med Rec #: [id number] Date Received: 12/15/2021 Date Reported: 12/20/2021 Provider: LUDA MAK Final Cytologic Diagnosis Satisfactory for evaluation. Endocervical component not identified. Negative for Intraepithelial Lesion or Malignancy. High-risk HPV mRNA E6/E7 by Aptima assay (performed at [email or web address]) is reported as NOT DETECTED (see separate report for details). Electronically Signed Out By Patrick Ross Source of Specimen(s) Cervical/Endocervi marge - Thin Prep Clinical History Screening, last Pap not provided. Z01.419 Date of Last Menstrual Period: 11/29/2021 Billing Fee Code(s): A: [id number] [facility] 12/14/2021 12/15/2021 7:0 7 AM CDT Comment:Cervical/Endocervica l - Thin Prep Luda MAK PATHOLOGY/CYTOLOGY ORDERABLES nal Result [facility] [address] [place] [address], from Last 3 Months or Most Recently Relevant to [place] [address] [facility] Care Teams Photographer Model Relationship Specialty Start Date End Date Luda Perrin PA PCP - General PHYSICIAN PATENT EXAMINER 10/13/18
--- OUTSIDE RECORDS SUMMARY | 2025-05-26 11:57 | XMS_ITS | Encounter Summary ---
Author Organization [facility] Address [address] [place] [address] Care Team Providers Care Cell Tester Name Role Phone Luda Perrin Primary Care Provider [phone] Encounter Details Date Type Department Care Team (Late st Contact Info) Description 09/26/2023 [employer] Message [facility] [address] [place] [address] Luda Perrin PA [address] [place] [address] Appointment Social History Tobacco Use Types Packs/Day [...] on file documented as of this encounter Functional Status * Over the past 2 weeks, how often have you been bothered by any of the following problems? Question Answer Date of Assessment Author Status Little interest or pleasure in doing things Not at all 09/26/2023 2:48 PM Mimi Rudd CMA Active Feeling down, depressed, or hopeless Not at all 09/26/2023 2:48 PM Aroldo Rudd CMA Active Patient Health Questionnaire-2 Score 0 09/26/2023 2:48 PM Khoi Rudd CMA Active documented as of this encounter Progress Notes * Bessie Mora RN - 09/26/2023 12:01 PM CST Patient contacted via telephone; scheduled for acute visit with PCP. BESSIE MORA RN 09/26/2023 FINISHER documented in this encounter Plan of Treatment Not on file documented as of this encounter Visit Diagnoses Not on filedocumented in this encounter Additional Health Concerns Infection Onset Date Last Indicated Resolved Time COVID-19 Rule Out 09/26/2023 09/26/2023 09/26/2023 3:40 PM NET FINISHER Influenza - Seasonal 09/26/2023 09/26/2023 024 12:32 AM NET FINISHER Assessment Noted Time PHQ-9 Depression Total Score: 0 02/09/20 21 11:48 AM CDT documented as of this encounter Care Teams Cell Tester Relationship Specialty Start Date End Date Luda Perrin PA PCP - General PHYSICIAN MANAGER SEMICONDUCTOR 10/13/18 documented as of this encounter
--- OUTSIDE RECORDS SUMMARY | 2025-05-26 11:57 | XMS_ITS | Encounter Summary ---
Author Organization [facility] Address [address] [facility] [place] [address] Care Team Providers Care It Software Developer Name Role Phone Unavailable Primary Care Provider Unavailabl e Encounter Details Date Type Department Care Team (Late st Contact Info) Description 06/29/2014 Lab Requisition [facility] [address] [place] [address] Unknown, Provider Social History Tobacco Use Types Packs/Day Years Used Date Smoking Tobacco: Never Assessed Comments Unknown Sex and Gender Information Value Date Recorded Sex Assigned at Female 04/16/2022 11:44 AM CDT Legal Sex Female 5:54 PM BASEBALL HAND SEWER Gender Identity Female 04/16/2022 11:44 AM CDT Sexual Orientation Not on file documented as of this encounter Plan of Treatment Not on file documented as of this encounter Procedures Procedure Name Priority Date/Time Associated Diagnosis Comments RUBEOLA ANTIBODY IGG Routine 06/29/2014 1:25 PM BASEBALL HAND SEWER MUMPS ANTIBODY IGG Routine 06/29/2014 1: 25 PM BASEBALL HAND SEWER VARICELLA ZOSTER ANTIBODY IGG Routine 06/29/2014 1:25 PM BASEBALL HAND SEWER HEPATITIS B SURFACE ANTIBODY Routine 06/29/2014 1:25 PM BASEBALL HAND SEWER documented in this encounter Results * VARICELLA ZOSTER ANTIBODY IGG (06/29/2014 1:25 PM BASEBALL HAND SEWER) Varicella zoster Virus Antibody IgG 345.9 IV 07/01/2014 12:30 PM BASEBALL HAND SEWER [facility] ([facility]) Comment: INTERPRETIVE INFORMATION: VZV Ab, IgG 134 [...] Unknown Venipuncture / Unknown 06/29/2014 1:25 PM BASEBALL HAND SEWER 06/29/2014 5:57 PM BASEBALL HAND SEWER Provider Unknown LAB - CHEMISTRY ORDERABLES Priscilla l Result [facility]) [address] [place] [address], [facility] * RUBEOLA ANTIBODY IGG (06/29/2014 1:25 PM BASEBALL HAND SEWER) [facility] Measles (Rubeola) Antibody IgG 282.0 AU/mL 07/01/2014 12:22 PM BASEBALL HAND SEWER [facility] ([facility]) Comment: INTERPRETIVE INFORMATION: Measles (Rubeola) Antibody, IgG [...] Unknown Venipuncture / Unknown 06/29/2014 1:25 PM BASEBALL HAND SEWER 06/29/2014 5:57 PM BASEBALL HAND SEWER us Provider Unknown LAB - CHEMISTRY ORDERABLES Priscilla l Result [facility] ([facility]) [address] * MUMPS ANTIBODY IGG (06/29/2014 1:25 PM BASEBALL HAND SEWER) Mumps Virus Antibody IgG 14.0 AU/mL 07/01/2014 12:25 PM BASEBALL HAND SEWER [facility] ([facility]) Comment: INTERPRETIVE INFORMATION: Mumps Ab, IgG by [...] Unknown Venipuncture / Unknown 06/29/2014 1:25 PM BASEBALL HAND SEWER 06/29/2014 5:57 PM BASEBALL HAND SEWER us Provider Unknown LAB - CHEMISTRY ORDERABLES Priscilla l Result Performing Organization Address [facility] Co de Phone Number [facility] ([facility]) [address] * HEPATITIS B SURFACE ANTIBODY (06/29/2014 1:25 PM BASEBALL HAND SEWER) Pathologist [facility] HBsAb Non Reactive Non Reactive 06/29/2014 7:41 PM BASEBALL HAND SEWER [facility] Blood BLOOD SPECIMEN / Unknown Venipuncture / Unknown 06/29/2014 1:25 PM BASEBALL HAND SEWER 06/29/2014 5:57 PM BASEBALL HAND SEWER us Provider Unknown LAB - CHEMISTRY ORDERABLES Priscilla l Result Performing Organization Address City/[facility]/ZIP Co de Phone Number [facility] [address] [place] [address] documented in this encounter Visit Diagnoses Not on filedocumented in this encounter
--- OUTSIDE RECORDS SUMMARY | 2025-05-26 11:57 | XMS_ITS | Encounter Summary ---
Author Organization [facility] Address [address] [place] [address] Care Team Providers Care Power Cutting Machine Operator Name Role Phone Luda Perrin Primary Care Provider [phone] Encounter Details Date Type Department Care Team (Late st Contact Info) Description 02/25/2003 Abstract [facility] Conversion Md, Generic Conversion, Social History Tobacco [...] Rule Out 09/26/2023 09/26/2023 09/26/2023 3:40 PM LINING PRINTER Influenza - Seasonal 09/26/2023 09/26/2023 024 12:32 AM LINING PRINTER documented as of this encounter Care Teams Power Cutting Machine Operator Relationship Specialty Start Date End Date Luda Perrin PA PCP - General PHYSICIAN WELL DRILL OPERATOR 10/13/18 documented as of this encounter
--- OUTSIDE RECORDS SUMMARY | 2025-05-26 11:57 | XMS_ITS | Encounter Summary ---
Author Organization [facility] Address [address] [place] [address] Care Team Providers Care Insulation Worker Name Role Phone Luda Perrin Primary Care Provider [phone] Encounter Details Date Type Department Care Team (Late st Contact Info) Description 09/09/2024 MD-IT Message [facility] [address] [place] [address] Luda Perrin PA [address] [place] [address] Question Social History Tobacco Use Types Packs/Day [...] documented as of this encounter Care Teams Insulation Worker Relationship Specialty Start Date End Date Luda Perrin PA PCP - General PHYSICIAN METAL SANDER 10/13/18 documented as of this encounter
--- OUTSIDE RECORDS SUMMARY | 2025-05-26 11:57 | XMS_ITS | Encounter Summary ---
Author Organization [facility] Address [address] [place] [address] Care Team Providers Care Water Resources Project Manager Name Role Phone Luda Perrin Primary Care Provider [phone] Encounter Details Date Type Department Care Team (Late st Contact Info) Description 02/04/2024 [employer] Message [facility] [address] [place] [address] Luda Perrin PA [address] [place] [address] Question Social History Tobacco Use Types Packs/Day [...] documented as of this encounter Care Teams Water Resources Project Manager Relationship Specialty Start Date End Date Luda Perrin PA PCP - General PHYSICIAN CASH PERSON 10/13/18 documented as of this encounter
--- OUTSIDE RECORDS SUMMARY | 2025-05-26 11:57 | XMS_ITS | Encounter Summary ---
Author Organization [facility] Address [address] [place] [address] Care Team Providers Care Petal Shaper Hand Name Role Phone Luda Perrin Primary Care Provider [phone] Encounter Details Date Type Department Care Team (Late st Contact Info) Description 03/25/2020 Prep for Procedure [address] [address] Jaiden Stout MD Social History [...] DETECTED NOT DETECTED 03/30/2020 5:36 PM CDT [facility] Comment: A Not Detected (negative) test result [...] providers and patients using the following websites: https://www.[facility]/home/Covid-19/HCP/NAAT/fact-sheet2 https://www.[facility]/home/Covid-19/Patients/NAAT/ fact-sheet2 This test has been authorized by the FDA under an Emergency Use Authorization (EUA) for use by authorized laboratories. Due to the current public health emergency, [facility] is receiving a high volume of samples [...] about COVID-19 can be found at the [facility] website: www.[employer]/Covid19. Test performed at [facility] [place] [address] [place] [address] Director: FRANCISCA MENEZES DO,MPH NASOPHARYNGEAL SWAB / Unknown 03/29/2020 8:14 AM CDT us Jaiden Stout MD MICROBIOLOGY - GENERAL ORDERJair AND[place] Final Result [facility] [id number] [place] [id number] [place] [address] documented in this encounter Visit Diagnoses Diagnosis Pre-op testing- Primary Preoperative examination, unspecified documented in this encounter Additional Health Concerns Infection Onset Date Last Indicated Resolved Time COVID-19 Rule Out 03/29/2020 03/29/2020 03/30/2020 5:37 PM CDT COVID-19 Rule Out 09/26/2023 09/26/2023 09/26/2023 3:40 PM ORAL HYGIENIST Influenza - Seasonal 09/26/2023 09/26/2023 024 12:32 AM ORAL HYGIENIST documented as of this encounter Care Teams Petal Shaper Hand Relationship Specialty Start Date End Date Luda Perrin PA PCP - General PHYSICIAN FINANCIAL ADVISER 10/13/18 documented as of this encounter
--- OUTSIDE RECORDS SUMMARY | 2025-05-26 11:57 | XMS_ITS | Encounter Summary ---
Author Organization [facility] Address [address] [place] [address] Care Team Providers Care Studio Technician Video Operator Name Role Phone Luda Perrin Primary Care Provider [phone] Encounter Details Date Type Department Care Team (Late st Contact Info) Description 08/01/[address] [employer] [address] [facility] [address] [place] [address] Luda Perrin PA [address] [place] [address] Labs Social History Tobacco Use Types Packs/Day [...] documented as of this encounter Care Teams Studio Technician Video Operator Relationship Specialty Start Date End Date Luda Perrin PA PCP - General PHYSICIAN CISCO NETWORK ARCHITECT 10/13/18 documented as of this encounter
--- OUTSIDE RECORDS SUMMARY | 2025-05-26 11:58 | XMS_ITS | Encounter Summary ---
Author Organization [facility] Address [address] [place] [address] Care Team Providers Care License Inspector Name Role Phone Luda Perrin Primary Care Provider [phone] Encounter Details Date Type Department Care Team (Late st Contact Info) Description 05/25/2025 [employer] Message [facility] [address] [place] [address] Luda Perrin PA [address] [place] [address] Colonoscopy referral Social History Tobacco Use Types Packs/Day Years [...] documented as of this encounter Care Teams License Inspector Relationship Specialty Start Date End Date Luda Perrin PA PCP - General PHYSICIAN ELECTRICAL SYSTEMS DESIGNER 10/13/18 documented as of this encounter
== END 2025-05-26 10:03 | disposition home or self-care (01) ==
LOC: ANHLAB 10:04
PROVIDERS: Nurse Practitioner Adult Health
DX: Z00.00 Encounter for general adult medical examination without abnormal findings (principal)
CPT/HCPCS: 36415; 80053; 80061; 84443; 85025; 86803